=== PATIENT | male | born 1960 | race Caucasian/White ===

== ENCOUNTER 2021-11-23 12:42 | Emergency (ER) | payer OTHER ==
[2021-11-23 13:50] LABS: #Eosinphils 0.2 10x3/uL (0.0-0.5); #Monocytes 0.5 10x3/uL (0.0-1.1); #Neutrophils 2.8 10x3/uL (1.5-8.4); %Basophils 0.5 % (0.0-2.0); %Eosinophils 3.9 % (0.0-6.0); %Lymphocytes 18.4 % (18.0-47.0); %Monocytes 11.8 % (0.0-10.0); %Neutrophils 64.5 % (40.0-75.0); Hemoglobin 8.1 g/dL (13.5-17.5); Mean Corpuscular HGB CONC 32.8 g/dL (32.0-36.0); Mean Corpuscular Hemoglobin 34.5 pg (27.0-33.0); Mean Corpuscular Volume 105.1 fl (81.2-95.1); Mean Platelet Volume 10.4 fl (7.4-10.4); Platelet Count 216 10x3/uL (150-450); Red Blood Cell (RBC) Count 2.35 10x6/uL (4.32-5.72); White Blood Cell (WBC) Count 4.3 10x3/uL (3.5-10.5)
[2021-11-23 13:51] LABS: INR-International Normal Ratio 0.9; PTT 27.7 sec (22.0-33.0)
[2021-11-23 13:54] LABS: ALT (SGPT) 17 U/L (8-55); AST (SGOT) 13 U/L (5-34); Albumin 3.6 g/dL (3.4-4.8); Alkaline Phosphatase 103 U/L (40-110); Anion Gap 12 mmol/L (10-20); BUN (Urea Nitrogen) 17 mg/dL (8.4-25.7); Bilirubin, Total 0.6 mg/dL (0.2-1.2); Calc. Creatinine Clearance 0 mL/min (70-130); Calcium 8.6 mg/dL (7.8-10.44); Carbon Dioxide 30 mmol/L (23-31); Chloride 104 mmol/L (98-107); Estimated GFR 98; Glucose 78 mg/dL (80-115); Potassium 4.2 mmol/L (3.5-5.1); Protein, Total 5.6 g/dL (5.8-8.1); Sodium 142 mmol/L (136-145)
[2021-11-23 14:37] LABS: Anisocytosis SLIGHT = 6-15 cells (100X) (0-5/hpf); Macrocytosis SLIGHT = 6-15 cells (100X) (0-5/hpf); Platelet Clumps SLIGHT; Platelet Morphology Comment Appears Adequate
[2021-11-23] MEDS ORDERED: Morphine 4 MG/ML VIAL ONE (15:46)
== END 2021-11-23 16:20 ==
LOC: CSHERS 12:42 → EEVIPCON 12:42 → CSHERS 16:20
DX: M79.604 Pain in right leg (principal); R60.0 Localized edema; N40.0 Benign prostatic hyperplasia without lower urinary tract symptoms; E78.5 Hyperlipidemia, unspecified; E03.9 Hypothyroidism, unspecified; M10.9 Gout, unspecified; W18.2XXA Fall in (into) shower or empty bathtub, initial encounter
CPT/HCPCS: 36415; 70450; 72170; 80053; 85025; 85610; 85730; 96374; J2270

== ENCOUNTER 2022-02-20 15:05 | Emergency (ER) | payer OTHER ==
[2022-02-20] MEDS ORDERED: HYDROcodone/Acetaminophen 5/325 mg Tablet ONE (16:12)
== END 2022-02-20 18:30 ==
LOC: CSHERS 15:05
DX: S80.01XA Contusion of right knee, initial encounter (principal); S70.11XA Contusion of right thigh, initial encounter; E78.5 Hyperlipidemia, unspecified; E03.9 Hypothyroidism, unspecified; W19.XXXA Unspecified fall, initial encounter